=== PATIENT | male | born 2000 | race Caucasian/White ===

== ENCOUNTER 2022-07-12 00:13 | Emergency (ER) | payer OTHER ==
[~2022-07-12] VITALS: Ht 177.8 cm; Wt 74.8 kg
--- NOTE | 2022-07-12 00:14 | NUR ---
PT BROUGHT TO BED 6 VIA [facility]
[2022-07-12 00:15] VITALS: BP 144/85
--- NOTE | 2022-07-12 00:15 | NUR ---
[facility] FROM [facility] WHERE PT FELL DOWN OUTSIDE AND WAS REPORTED TO HAVE CONSUMED LARGE AMOUNTS OF ALCOHOL. IS NOW NON VERBAL BUT RESPONDS TO PAINFUL STIMULI. FLUID BOLUS BEGUN
[2022-07-12] MEDS ORDERED: NACL 0.9% 1,000 ML IV ONE (00:25)
--- NOTE | 2022-07-12 00:43 | NUR ---
FRANCISCO WARNER SISTER [phone] CALLED REQUESTING UPDATE
--- NOTE | 2022-07-12 01:42 | NUR ---
FATHER LUCILABRENT WARNER CALLED REQUESTING UPDATE [phone]
[2022-07-12 04:00] VITALS: BP 144/85
--- NOTE | 2022-07-12 04:00 | NUR ---
Patient discharged with v/s stable. Written and verbal after care instructions given and explained. Patient verbalized understanding. Ambulatory with steady gait. All questions addressed prior to discharge. Advised to follow up with PMD.
== END 2022-07-12 04:00 | disposition home or self-care (01) ==
LOC: MED 00:13
DX: F10.129 Alcohol abuse with intoxication, unspecified (principal); R41.82 Altered mental status, unspecified
CPT/HCPCS: 96360; 99283; J7030